=== PATIENT | male | born 1955 | race Caucasian/White ===

== ENCOUNTER 2024-01-14 09:43 | Outpatient (CLI) | payer OTHER, SELFPAY ==
[2024-01-14 18:45] LABS: Hematocrit 47.5 % (42.0-52.0); Hemoglobin 16.1 g/dL (14.0-18.0); Mean Corpuscular HGB Conc 33.9 g/dl (32-36); Mean Corpuscular Hemoglobin 30.4 pg (26-34); Mean Corpuscular Volume 89.8 fl (80-100); Mean Platelet Volume 11.4 fl (7.4-10.4); Platelet Count Result 253 k/mm3 (150-375); Red Blood Count 5.29 M/mm3 (4.6-6.20); Red Cell Distribution Width 12.8 % (11.5-14.5)
[2024-01-14 19:02] LABS: Alanine Aminotransferase 28 U/L (6-50); Albumin Level 4.4 g/dL (3.5-5.1); Alkaline Phosphatase 68 U/L (38-126); Anion Gap 9 mmol/L (4-12); Aspartate Amino Transferase 35 U/L (17-59); Bilirubin,Total 0.9 mg/dL (0.2-1.3); Blood Urea Nitrogen 22 mg/dL (9-20); Calcium 9.1 mg/dL (8.4-10.2); Carbon Dioxide 29 mmol/L (22-30); Chloride 98 mmol/L (98-107); Cholesterol 199 mg/dL (0-200); Estimated Glomerular Filt Rate > 60; Glucose 111 mg/dL (65-110); HDL Direct 38 mg/dL; Potassium 3.6 mmol/L (3.4-5.0); Sodium 136 mmol/L (137-145); Triglycerides 131 mg/dL (<150)
[2024-01-14 19:13] LABS: LDL Cholesterol Direct 130 mg/dL
[2024-01-14 19:33] LABS: Prostate Specific Antigen 2.5 ng/mL (< OR = 4.0)
[2024-01-14 21:18] LABS: Hemoglobin A1C 5.9 % (<5.7)
== END 2024-01-14 09:44 | disposition home or self-care (01) ==
PROVIDERS: PCP Family Medicine; Visit Provider Family Medicine
DX: Z12.5 Encounter for screening for malignant neoplasm of prostate (principal); R73.09 Other abnormal glucose; I10 Essential (primary) hypertension; E78.2 Mixed hyperlipidemia; Z13.220 Encounter for screening for lipoid disorders; Z12.11 Encounter for screening for malignant neoplasm of colon
CPT/HCPCS: 36415; 80048; 80061; 80076; 83036; 84153; 84443; 85027; G0103

== ENCOUNTER 2025-03-31 00:54 | Day surgery (SDC) | payer MEDICARE, SELFPAY ==
--- OUTSIDE RECORDS SUMMARY | 2022-10-12 05:59 | XMS_ITS | Continuity of Care Document ---
Author Organization [facility] Address [address] [place] [id number] Phone Care Team Providers Care Staffing Program Manager Name Role Phone Sven Sorensen DO Unavailable Unavailable Medications Medication Instructions Dosage Effective Dates (start - stop) Status Comments losartan 25 mg tablet take 1 tablet by oral route every day 25 MG - Active amlodipine 2.5 mg-benazepril 10 mg capsule take 1 capsule by oral route every day 1.00 capsule - Active Viagra 50 mg Tab take as needed - Active ibuprofen 600 mg Tab Take as needed - Active Tylenol Extra Strength 500 mg Tab take as needed - Active Procedures Procedure Date Level Iv-surg Path Gross/t, Lvl IV Colonoscopy Flex; W/remov Les- 21 Moderate Sedation - Endoscopy ASC Facility Charge ASC Facility Charge Colonoscopy Flex; Dx (feb Pro) 16 Hepatic Function Panel Agt-dna/rna; Hep C-eddie Bld Ct; Hg/pltlt Ct Auto/compl 13 Prothrombin Time Hepatic Function Panel Agt-dna/rna; Hep C-eddie Inf Agt Genotype Dna/rna; Hcv 3 Unlisted Molecular Pathology Procedure J Offic Cons New/estab Mod Colonoscopy Flex; W/remov Les- 10 [facility] Facility Charge Level Iv-surg Path Gross/micro 10 [facility] Facility Charge Colonoscopy Flex; W/remov Les- 07 Colonoscopy Flex; W/bx 1/mx Advance Directives Directive Yes / No Effective Date File Name No Information Encounters Encounter Description Practice Location Reason(s) For Visit Diagnoses Date Provider Providers Copied on Encounter [facility], [address] [place] [address], [id number] tel:[phone] [facility] No Information 3 Edu Andres. [address] [place] [address], [id number], [place]. tel:[phone] [facility], [address] [place] [address], [id number] tel:[phone] [facility] No Information 1 Gibran mandel. [address] [place] [address], [id number], [place]. tel:[phone] [facility], [address] [place] [address], [id number] tel:[phone] [facility] Benign neoplasm of transverse colonFamily history of malignant neoplasm of digestive organs 1 Gibran mandel. [address] [place] [address], [id number], [place]. tel:[phone] [facility], [address] [place] [address], [id number] tel:[phone] [facility] No Information 1 [facility]. [address] [place] [address], [id number], [place]. tel:[phone] Referring Provider: Matilde Leary MD, [address] [place] [address], [place], [id number]. tel:[phone] [facility], [address] [place] [address], [id number] tel:[phone] [facility] No Information 0 6 [facility]. [address] [place] [address], [id number], [place]. tel:[phone] Referring Provider: Seymour Paul, [address] [place] [address], [id number]. tel:[phone] [facility], [address] [place] [address], [id number] tel:[phone] [facility] Family history of malignant neoplasm of digestive organsPerson al history of colonic polypsDvrtcl os of lg int w/o perforation or abscess w/o bleeding Sep-0 6 Abel Ahuja. [address] [place] [address], [id number], [place]. tel:[phone] [facility], [address] [place] [address], [id number] tel:[phone] [facility] No Information 3 [facility] MD Rambo mandel. [address] [place] [address], [id number], [place]. tel:[phone] [facility], [address] [place] [address], [id number] tel:[phone] [facility] No Information 3 [facility] MD Rambo mandel. [address] [place] [address], [id number], [place]. tel:[phone] [facility], [address] [place] [address], [id number] tel:[phone] [facility] No Information 3 [facility] MD Rambo mandel. [address] [place] [address], [id number], [place]. tel:[phone] Offic Cons New/estab Mod [facility], [address] [place] [address], [id number] tel:[phone] [facility] Hepatitis, chronic NECAbnormal Liver Enzyme Levels 3 Gibran mandel. [address] [place] [address], [id number], [place]. tel:[phone] [facility], [address] [place] [address], [id number] tel:[phone] [facility] Colon PolypDiverti culosisPerso nal history of colon polypFamily history of colon cancer 0 Abel Ahuja. [address] [place] [address], [id number], [place]. tel:[phone] [facility], [address] [place] [address], [id number] tel:[phone] [facility] No Information 0 [facility]. [address] [place] [address], [id number], [place]. tel:[phone] Referring Provider: Seymour Paul, [address] [place] [address], [id number]. tel:[phone] [facility], [address] [place] [address], [id number] tel:[phone] [facility] No Information 0 Abel Ahuja. [address] [place] [address], [id number], [place]. tel:[phone] [facility], [address] [place] [address], [id number] tel:[phone] [facility] No Information 7 Abel Ahuja. [address] [place] [address], [id number], [place]. tel:[phone] [facility], [address] [place] [address], [id number] tel:[phone] [facility] No Information 200 7 Abel Ahuja. [address] [place] [address], [id number], [place]. tel:[phone] [facility], [address] [place] [address], [id number] tel:[phone] [facility] No Information Abel Ahuja. [address] [place] [address], [place], [place], [id number], [place]. tel:[phone] Family History Family Member Type Diagnosis Age At Onset Problem (finding) No family history of Co yao polyps Brother Problem (finding) cancer of colon Payers Payer name Insurance type Covered libertarian ID Authoriza tion(s) [facility] [id number] Social History Type Description Quantity Date Captured Comments Sex Male Smoking Status No Information Chief Complaint And Reason For Visit No Information Reason For Referral Reason For Referral No Information Plan Of Treatment Date Type Action Status Patient Education Diverticulosis: After Y our Visit completed History Of Present Illness Encounter Date Complaint History Of Prese nt Illness No Information Functional Status Date Functional Assessmen t No Information Instructions Date Instruction Additional Infor mation No Information Assessments Type Assessment Date No Information Patient Care Teams Name Effective Dates (start - stop) Status Members No Information
[2025-01-20 13:29] VITALS: BMI 32.8
[2025-03-20 14:03] VITALS: BMI 32.8
--- OUTSIDE RECORDS SUMMARY | 2025-03-31 00:56 | XMS_ITS | Clinical Summary ---
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 Gender Identity Not on file Sexual Orientation Not on file Plan of Treatment Health Maintenance Due Date Last Done Comments Colorectal Cancer Screening Colonoscopy (10 Years) 1955 Hepatitis C 1974 DTaP, Tdap and Td Vaccines ( 1 - Tdap) 1975 Pneumococcal Vaccine: 50+ Ye ars (1 of 1 - PCV) 2006 Zoster Vaccines (1 of 2) 2006 COVID-19 Vaccine (1 - 2023-2 5 season) 2025 Influenza Adult (#1) 2025 RSV Immunization or 60+ Years (1 - 1-dose 75+ series) 2031 Meningococcal B Vaccine Aged Out No l onger eligible based on patient's age to complete this topic Meningococcal Vaccine Aged Out No yao eloise eligible based on patient's age to complete this topic RSV Immunizations Under 20 Months Aged Out No longer eligible based on patient's age to complete this topic
--- OUTSIDE RECORDS SUMMARY | 2025-03-31 00:56 | XMS_ITS | Clinical Summary ---
Author Organization [facility] Address [address] [place] [address] Care Team Providers Care [place] Miner Name Role Phone Unavailable Primary Care Provider Unavailabl e Social History Tobacco Use Types Packs/Day Years Used Date Smoking Tobacco: Never Assessed Sex and Gender Information Value Date Recorded Sex Assigned at Not on file Legal Sex Male 12:51 AM PST Gender Identity Not on file Sexual Orientation Not on file Plan of Treatment Not on file
--- OUTSIDE RECORDS SUMMARY | 2025-03-31 00:56 | XMS_ITS | Encounter Summary ---
Author Organization [facility] Address [address] [place] [address] Care Team Providers Care Kitchen Worker Name Role Phone Unavailable Primary Care Provider Unavailabl e Prior Encounters Date Type Department Care Team Description 07/07/2019 Converted CPS Chart Documents [facility] [address] [id number] <No scans attached> 07/07/2019 Converted 13x Documents [facility] [address] [phone] <No scans attached> Plan of Treatment Not on file Procedures Procedure Name Priority Date/Time Associated Diagnosis Comments OS CONSULT Routine 11/03/2016 2:00 AM CDT 1 EXTRACTION, ERUPTED TOOTH REQUIRING REMOVAL OF BONE AND/OR SECTIONING OF TOOTH Routine 11/03/2016 2:00 AM CDT Visit Diagnoses Not on file
[2025-03-31 08:27] VITALS: BP 148/95; PULSE 67; RESP 20; TEMP 36.6; O2SAT 99
[2025-03-31] MEDS: LACTATED RINGERS 1,000 ML 150 ML IV CONT (08:38)
--- NOTE | 2025-03-31 08:52 | WPDANESEPPF ---
Anes - Initial Pre Proc Eval Procedure: Operation Date: 03/31/25 09:30 Proposed Procedures p Screening Colonoscopy - Jose Smith MD Date/Time: 03/31/25 08:52 Surgeon: Jose Smith MD Pre Op Diagnosis: screening/positive cologuard Patient Data Age: 69 Gender: M Height: 1.83 m Weight: 113.4 kg Last Vital Signs Temp 36.6 C 03/31/25 08:27 Pulse 67 03/31/25 08:27 Resp 20 03/31/25 08:27 BP 148/95 H 03/31/25 08:27 Pulse Ox 99 03/31/25 08:27 O2 Del Method Room Air 03/31/25 08:27 Allergies Allergy/AdvReac Type Severity Reaction Status Date / Time No Known Allergies Allergy Verified 03/31/25 08:25 Home Medications ?Medication ?Instructions ?Recorded ?Confirmed ?Type amlodipine 2.5 mg tablet (Norvasc) 2.5 mg PO DAILY #90 tabs 01/14/24 03/31/25 Rx enalapril maleate 20 mg tablet 20 mg PO DAILY #90 tabs 01/08/25 03/31/25 Rx hydrochlorothiazide 25 mg tablet 25 mg PO DAILY #90 tabs 01/08/25 03/31/25 Rx Patient hx anesthesia problems: none Family hx anesthesia problems: none Results Review: All pre-operative results and documents have been reviewed as part of the pre-operative evaluation. [facility] Past Medical History Medical History Mixed hyperlipidemia Retinal detachment Detached retina Hernia Cataracts, bilateral Retina disorder Surgical History Surgical History Hx of hernia repair H/O elbow surgery Family History Family History Father Hypertension Family history of coronary artery disease Heart disease Tobacco abuse Alcohol abuse Grandparent Cerebrovascular accident Mother Tobacco abuse Alcohol abuse Gallbladder calculus Sibling Cancer of kidney Breast cancer Tobacco abuse Alcohol abuse Social History Social History Smoking status: Never smoker Second hand tobacco smoke exposure: Yes Alcohol intake: current Substance use: never Substance use type: does not use Do You Feel Safe in your Home?: Yes Lack of Transportation: No Lack of Food: Never True Current Housing: I Have Housing Concerned About Future Housing: No Difficulty Paying Gas/Electric Bills: No Difficulty Paying for Meds: No Currently Unemployed: No Education: Bachelor's Degree Difficulty w/ Childcare or Family Care: No Living arrangements: with family Occupation/Education: retired Additional occupation/education comments: 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 Gender identity (if verbalized by the patient): Male Spiritual care concerns: No Anes - Eval Final PreProcedure Day of Procedure 03/31/25 08:52 Patient weight: obese Heart: regular rate and rhythm Lungs: normal air movement Airway: Mallampati scale class II Neurological: alert and oriented Last oral intake: >/= 8 hours ASA classification: III Emergent: no Anesthetic plan: proceed Anesthesia type and monitoring: general GIVS and standard monitoring Results Review: All pre-operative results and documents have been reviewed as part of the pre-operative evaluation. Informed Consent: The patient's anesthetic plan and its attendant risks and benefits were discussed with the patient/family/POA. Questions were solicited and answers provided to the satisfaction of the patient/family/POA.
--- NOTE | 2025-03-31 08:54 | PM.HPGS ---
History of Present Illness History of Present Illness Consent: Risks, benefits, and alternatives have been discussed and questions answered. Patient agrees to proceed with procedure. Chief complaint: screening/positive cologuard Narrative: Lee Saucedo is a 69 year old male with + cologuard, never had colonoscopy Review of Systems Review of Systems: All systems reviewed & are unremarkable except as noted in HPI and below PMFSH Past Medical History Medical History Mixed hyperlipidemia Retinal detachment Detached retina Hernia Cataracts, bilateral Retina disorder Surgical History Surgical History Hx of hernia repair H/O elbow surgery Family History Family History Father Hypertension Family history of coronary artery disease Heart disease Tobacco abuse Alcohol abuse Grandparent Cerebrovascular accident Mother Tobacco abuse Alcohol abuse Gallbladder calculus Sibling Cancer of kidney Breast cancer Tobacco abuse Alcohol abuse Social History Social History Smoking status: Never smoker Second hand tobacco smoke exposure: Yes Alcohol intake: current Substance use: never Substance use type: does not use Do You Feel Safe in your Home?: Yes Lack of Transportation: No Lack of Food: Never True Current Housing: I Have Housing Concerned About Future Housing: No Difficulty Paying Gas/Electric Bills: No Difficulty Paying for Meds: No Currently Unemployed: No Education: Bachelor's Degree Difficulty w/ Childcare or Family Care: No Living arrangements: with family Occupation/Education: retired Additional occupation/education comments: 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 Gender identity (if verbalized by the patient): Male Spiritual care concerns: No Meds Home Medications and Allergies Home Medications ?Medication ?Instructions ?Recorded ?Confirmed ?Type amlodipine 2.5 mg tablet (Norvasc) 2.5 mg PO DAILY #90 tabs 01/14/24 03/31/25 Rx enalapril maleate 20 mg tablet 20 mg PO DAILY #90 tabs 01/08/25 03/31/25 Rx hydrochlorothiazide 25 mg tablet 25 mg PO DAILY #90 tabs 01/08/25 03/31/25 Rx Allergies Allergy/AdvReac Type Severity Reaction Status Date / Time No Known Allergies Allergy Verified 03/31/25 08:25 Vital Signs Vital Signs - 24 hr 03/31/25 08:27 Temperature 97.9 F Pulse Rate 67 Respiratory Rate 20 Blood Pressure 148/95 H Pulse Oximetry 99 Oxygen Delivery Room Air Exam Const: General: comfortable and no acute distress HENMT: Face/Nose/Sinus: Normal nares present Eyes: General: appearance normal, both eyes and all related structures Resp: Auscultation: clear to auscultation bilaterally Cardio: Rate: regular rate Rhythm: regular rhythm GI: Inspection: non-distended GI Palp: Yes Soft to palpation Skin: General skin exam: normal color Extrem: General: normal to inspection Psych: Mental Status: mental status grossly normal Assessment and Plan Assessment and plan (1) Positive colorectal cancer screening using Cologuard test: Code(s): R19.5 - Other fecal abnormalities Status: Acute Assessment and Plan: colonoscopy
[2025-03-31 09:11] VITALS: BP 104/68; PULSE 65; RESP 20; TEMP 36.6; O2SAT 97
--- NOTE | 2025-03-31 09:11 | S_PTH ---
PATIENT: Lee Saucedo LOC: [facility]#:[id number] AGE/SX: 69/M ROOM: RE03/31/[address]: Jose Smith MD : 1955 BED: DIS: 03/31/2025 SPEC #: [id number] RECD: 03/31/25 09:49 STATUS: AINSLEY LUI #: [id number] MARK: 03/31/25 09:[address]: Jose Smith DEPT: [facility] Surgical RECD BY: Moisés Carlson ENTERED: 03/31/25 09:49 SP TYPE: Surgical OTHR DR: Will Kenny MD Tissues: A - Colon Polypectomy Procedures: Hematoxylin and Eosin Stain Gross and Microscopic Level 4
[2025-03-31 09:21] VITALS: BP 131/77; PULSE 66; RESP 20; O2SAT 98
[2025-03-31 09:31] VITALS: BP 135/77; PULSE 54; RESP 16; O2SAT 97
== END 2025-03-31 09:43 | disposition home or self-care (01) ==
PROVIDERS: PCP Family Medicine; Referring Provider Nurse Practitioner Family; Visit Provider Internal Medicine Gastroenterology
PROC: 0DJD8ZZ Inspection of Lower Intestinal Tract, Via Natural or Artificial Opening Endoscopic (ICD-10-PCS; CPT 45378; principal; 2025-03-31 09:30)
DX: R19.5 Other fecal abnormalities (principal); K63.5 Polyp of colon; K64.8 Other hemorrhoids; K57.30 Diverticulosis of large intestine without perforation or abscess without bleeding; E78.2 Mixed hyperlipidemia; H35.89 Other specified retinal disorders; E66.9 Obesity, unspecified; Z68.33 Body mass index [BMI] 33.0-33.9, adult; Z98.890 Other specified postprocedural states; Z80.51 Family history of malignant neoplasm of kidney; Z80.3 Family history of malignant neoplasm of breast; Z82.49 Family history of ischemic heart disease and other diseases of the circulatory system
CPT/HCPCS: 45385; 88305; J2003; J2704; J7120